=== PATIENT | female | born 1930 | race African-American/Black ===

== ENCOUNTER 2019-02-09 12:05 | Emergency (ER) | payer OTHER ==
[2019-02-09 12:35] VITALS: TEMP 98; BMI 24.2
[2019-02-09] MEDS ORDERED: amLODIPine BESYLATE 5 MG TABLET (FP) PO ONE ×2 (12:57→13:43)
[2019-02-09] MEDS ORDERED: amLODIPine BESYLATE 5 MG TABLET (FP) ONE ×2 (13:01→14:01)
--- NOTE | 2019-02-09 13:24 | PDOC ---
History of Present Illness - General Chief Complaint: Blood Pressure Problem Stated Complaint: HTN Time Seen by Provider: 02/09/19 12:55 - History of Present Illness Initial Comments: Wilver García is an 88yo woman with a PMH of HTN, mild dementia who was sent to the ED from medicine clinic due to asymtpomatic hypertensive urgency. Dr Quiñonez called the ED with report; he states that Ms García was taking her amlodipine 5mg daily rather than twice daily at home. She denied any symtpoms in clinic. Ms García continues to deny any chest pain, SOB, dizziness, focal weakness, numbness/tingling, vision changes, or changes in urination today. Past History - Past Medical History Allergies/Adverse Reactions: Allergies Allergy/AdvReac Type Severity Reaction Status Date / Time No Known Allergies Allergy Verified 02/09/19 12:33 COPD: No HTN: Yes - Suicide/Smoking/Psychosocial Hx Smoking History: Never smoked Hx Alcohol Use: No Drug/Substance Use Hx: No Review of Systems - Review of Systems Comments:: General: No fevers, no chills, no weight or appetite change, no malaise HEENT: No changes in vision, no changes in hearing, no congestion, no sore throat CV: No chest pain, no palpitations, no LE edema Pulm: No SOB, no cough, no wheezing GI: No nausea or vomiting, no change in bowel habits, no melena : No frequency, no urgency, no dysuria Musc: No back pain, no joint swelling, no recent injury Skin: No rash, no lesions, no erythema Endo: No excessive thirst, no heat/cold intolerance Heme: No unusual bruising or bleeding, no swollen glands Neuro: No syncope, no numbness/tingling, no focal weakness Vasc: No claudication Psych: No recent change in mood, no SI or HI *Physical Exam - Vital Signs Last Vital Signs Temp Pulse Resp BP Pulse Ox 98.0 F 60 16 211/105 H 100 02/09/19 12:33 02/09/19 12:33 02/09/19 12:33 02/09/19 12:33 02/09/19 12:33 - Physical Exam Comments: General: Comfortable, no acute distress HEENT: Atraumatic, PERRL, EOMI, MMM, numerous missing teeth, voice normal, normal neck ROM Cards: RRR, no murmur appreciated Pulm: Comfortable on room air, clear to auscultation bilaterally Abd: Soft, nontender, nondistended : No CVA tenderness Ext: Atraumatic. No LE edema. ROM intact. WWP Neuro: Awake and alert, CN grossly intact, normal speech, motor/sensory grossly intact and symmetric Psych: Mood appropriate to situation ED Treatment Course - LABORATORY CBC & Chemistry Diagram: 02/09/19 13:36 02/09/19 13:36 - RADIOLOGY Radiology Studies Ordered: Category Date Time Status CHEST X-RAY PORTABLE* [RAD] Stat Radiology 02/09/19 13:07 Ordered - Medications Given in the ED: ED Medications Discontinued Medications Generic Name Dose Route Start Last Admin Trade Name Freq PRN Reason Stop Dose Admin Amlodipine Besylate 5 mg 02/09/19 12:57 02/09/19 13:08 Norvasc - PO 02/09/19 12:58 5 mg ONCE ONE Administration Medical Decision Making - Medical Decision Making 02/09/19 13:08 Wilver García is an 88yo woman with a PMH of HTN, mild dementia who was sent to the ED from medicine clinic due to asymptomatic hypertensive urgency. Dr Quiñonez called the ED with report; he states that Ms García was taking her amlodipine 5mg daily rather than twice daily at home. She denied any symptoms in clinic. Ms García continues to deny any chest pain, SOB, dizziness, focal weakness, numbness/tingling, vision changes, or changes in urination today. - Most likely HTN urgency - Reportedly asymptomatic, does not appear to be HTN emergency - CBC, CMP, UA, CXR to evaluate for end organ damage - Amlodipine 10mg given 02/09/19 16:29 - Labs reviewed, unremarkable. Trop pending - EKG w/ NSR, HR 61, normal axis, normal intervals, no ST changes - BP now 169/94 - Discussed home care, return precautions, follow up with Ms García and her friend at bedside. Pt has an appointment with her neurologist tomorrow, located in the same building as her PMD. Will proceed directly to PMD if BP is high at neurology appointment - Instructed to take amlodipine BID as directed by Dr Quiñonez. Discussed with Dr Farooq Zuluaga PGY2 *DC/Admit/Observation/Transfer Diagnosis at time of Disposition: Hypertensive urgency - Discharge Dispostion Disposition: HOME Condition at time of disposition: Stable Decision to Admit order: No - Referrals Referrals: Kj Luz MD [Primary Care Provider] - - Patient Instructions Printed Discharge Instructions: DI for High Blood Pressure Additional Instructions: Discharge Instructions: You were seen in the emergency deparment with high blood pressure. Your blood tests did not show any concerning changes, and your blood pressure came down with extra medication. You should take your amlodipine (Norvasc) twice per day starting tonight ( morning and evening). See your regular doctor within the next 1-2 weeks in case your medication needs to be adjusted Seek immediate care if you have chest pain, difficulty breathing, a severe headache, sudden changes in vision, you stop urinating, or you have any other medical emergency. - Post Discharge Activity
[2019-02-09 14:21] LABS: BASO % 1.1 % (0-2.0); EOS % 2.8 % (0-4.5); HEMATOCRIT 33.2 % (32.4-45.2); HEMOGLOBIN 10.9 GM/dL (10.7-15.3); LYMPH % 31.8 % (8-40); MCHC 32.8 g/dl (32.0-36.0); MEAN CELL VOLUME 82.5 fl (80-96); MEAN PLT VOLUME 7.7 fl (7.5-11.1); MONO % 11.8 % (3.8-10.2); NEUT % 52.5 % (42.8-82.8); PLATELET COUNT 254 K/MM3 (134-434); RBC 4.03 M/mm3 (3.60-5.2); RDW 15.9 % (11.6-15.6); WHITE BLOOD COUNT 3.6 K/mm3 (4.0-10.0)
[2019-02-09 14:52] LABS: ALBUMIN 3.9 g/dl (3.4-5.0); ALK PHOS 53 U/L (45-117); ANION GAP 9 MMOL/L (8-16); BILIRUBIN,TOTAL 0.4 mg/dL (0.2-1); BLOOD UREA NITROGEN 22.2 mg/dL (7-18); CALCIUM 9.3 mg/dL (8.5-10.1); CHLORIDE 107 mmol/L (98-107); CO2 28 mmol/L (21-32); CREATININE 1.2 mg/dL (0.55-1.3); GLUCOSE,RANDOM 83 mg/dL (74-106); SGOT/AST 17 U/L (15-37); SGPT/ALT 13 U/L (13-61); SODIUM 143 mmol/L (136-145)
[2019-02-09 15:07] LABS: HYALINE CASTS 1 /lpf (0-8); PH,URINE 5.5 (5.0-8.0); URINE APPEARANCE CLOUDY; URINE BACTERIA 1.5 /hpf (NEGATIVE); URINE BILIRUBIN NEGATIVE (NEGATIVE); URINE COLOR YELLOW; URINE GLUCOSE (UA) NEGATIVE (NEGATIVE); URINE KETONE NEGATIVE (NEGATIVE); URINE LEUK ESTERASE 1+ (NEGATIVE); URINE NITRITE NEGATIVE (NEGATIVE); URINE PROTEIN NEGATIVE (NEGATIVE); URINE RBC 1 /hpf (0-4); URINE UROBILINOGEN 0.2 mg/dL (0.2-1.0); URINE WBC 6 /hpf (0-5)
[2019-02-09 16:19] VITALS: BP 169/94; PULSE 86
--- NOTE | 2019-02-09 16:42 | PDOC ---
Attending Attestation - Resident Resident Name: MargarethMayra - ED Attending Attestation I have performed the following: I have examined & evaluated the patient, The case was reviewed & discussed with the resident, I agree w/resident's findings & plan, Exceptions are as noted - HPI HPI: 02/09/19 16:42 Reviewed Residents HPI - Physicial Exam PE: 02/09/19 16:42 Reviewed Residents PE - Medical Decision Making 02/09/19 16:39 88yo woman with a PMH of HTN, mild dementia who was sent to the ED from medicine clinic due to asymtpomatic hypertension, non compliant with meds Asymptomatic home meds given Labs unremarkable Reevaluation 4 PM patient remains a symptomatically blood pressure now well- controlled we'll restart her home medications and have her follow-up with her PCP Find his, the need for follow-up, strict return instructions discussed patient.
--- NOTE | 2019-02-10 11:10 | EKG ---
Test Reason : Blood Pressure : / mmHG Vent. Rate : 061 BPM Atrial Rate : 068 BPM P-R Int : 138 ms QRS Dur : 076 ms QT Int : 414 ms P-R-T Axes : 053 000 055 degrees QTc Int : 416 ms NORMAL SINUS RHYTHM NORMAL ECG NO PREVIOUS ECGS AVAILABLE Confirmed by QIAN LANDA, MICHAEL ([id number]) on 02/10/2019 11:09:45 AM Referred By: Confirmed By:MICHAEL LAUGHLIN MD
--- NOTE | 2019-02-13 15:11 | EKG ---
Test Reason : Blood Pressure : / mmHG Vent. Rate : 067 BPM Atrial Rate : 067 BPM P-R Int : 144 ms QRS Dur : 074 ms QT Int : 422 ms P-R-T Axes : 055 -16 054 degrees QTc Int : 445 ms NORMAL SINUS RHYTHM NORMAL ECG WHEN COMPARED WITH ECG OF 09-FEB-2019 12:36, NO SIGNIFICANT CHANGE WAS FOUND Confirmed by MD ARZATE MOYSES ([id number]) on 02/13/2019 3:11:13 PM Referred By: Confirmed By:DANAE ARZATE MD
== END 2019-02-09 16:37 | disposition home or self-care (01) ==
LOC: JER 12:05
DX: I16.0 Hypertensive urgency (principal); F03.90 Unspecified dementia, unspecified severity, without behavioral disturbance, psychotic disturbance, mood disturbance, and anxiety
CPT/HCPCS: 36415; 71045-TC-FY; 80053; 81003; 82550; 84484; 85025; 93005; 93010; 99283-25